=== PATIENT | male | born 1985 | race Caucasian/White ===

== ENCOUNTER 2017-07-01 21:58 | Emergency (ER) | payer BC ==
[2017-07-01] MEDS ORDERED: Ketorolac 30 MG/ML SDV IVPUSH ONE (22:12)
[2017-07-01] MEDS ORDERED: Ondansetron 4 MG/2 ML SDV IVPUSH ONE (22:12)
[2017-07-01] MEDS ORDERED: Sodium Chloride 0.9% 10 ML Syringe FLUSH PRN (22:12)
[2017-07-01] MEDS ORDERED: Iopamidol 755 Mg/ML 100 ML Bottle IV ONE (22:38)
[2017-07-01] MEDS ORDERED: HYDROmorphone 2 MG/ML SDV IVPUSH ONE (23:00)
[2017-07-02] MEDS ORDERED: Sodium Chloride 0.9% 1,000 ML IV SCH (00:15)
--- NOTE | 2017-07-02 00:39 | PCM.CONS ---
H&P History of Present Illness - General Date of Service: 07/02/17 Source of Information: Patient - History of Present Illness Initial Comments - Free Text/Narative: 31 yo wm who developed abd pain this pm. started as a band like pain in the lower abdomen. it is constant. some relief with shifting his legs. Did try hot baths as well as showers with no relief. Did have some emesis as well. He is afebrile. He denies any anorexia. Did have 6 beers this pm as well. lower abdomen and lower back Pain Score (Numeric/FACES): 7 - Related Data Allergies/Adverse Reactions: Allergies Allergy/AdvReac Type Severity Reaction Status Date / Time amoxicillin Allergy Swelling Verified 07/01/17 22:07 Home Medications: Home Meds NK [No Known Home Meds] 07/01/17 [History] Past Medical History - Past Surgical History GI Surgical History: Reports: Hernia, Abdominal, Hernia Repair/Other Social & Family History - Family History Family Medical History: Unobtainable GI: Reports: None - Tobacco Use Smoking Status *Q: Never Smoker - Caffeine Use Caffeine Use: Reports: Soda - Recreational Drug Use Recreational Drug Use: No H&P Review of Systems - Review of Systems: Review Of Systems: See Below General: Denies: Fever, Chills, Decreased Appetite HEENT: Reports: No Symptoms Pulmonary: Reports: No Symptoms Cardiovascular: Reports: No Symptoms Gastrointestinal: Reports: Abdominal Pain Genitourinary: Reports: No Symptoms Musculoskeletal: Reports: Back Pain Skin: Reports: No Symptoms Exam - Exam Exam: See Below - Vital Signs Vital Signs: Last Vital Signs Temp 36.6 C 07/01/17 22:00 Pulse 60 07/01/17 22:00 Resp 16 07/01/17 22:00 BP 145/95 H 07/01/17 22:00 Pulse Ox 99 07/01/17 22:00 Weight: 106.141 kg - Exam General: Alert, Oriented HEENT: PERRLA, Conjunctiva Clear, EOMI, Mucosa Moist & [place] Cardiovascular: Regular Rate, Regular Rhythm GI/Abdominal Exam: Normal Bowel Sounds, Soft, Other (some tympany ). No: Guarding, Rigid, Rebound, Tender Back Exam: Normal Inspection, Full Range of Motion - Patient Data Lab Results Last 24 hrs: Laboratory Results - last 24 hr 07/01/17 07/01/1718 Range/Units 22:32 22:32 22:32 WBC 9.0 (4.5-12.0) X10-3/uL RBC 5.04 (4.30-5.75) x10(6)uL Hgb 15.1 (11.5-15.5) g/dL Hct 46.1 (30.0-51.3) % MCV 91.5 (80-96) fL MCH 30.0 (27.7-33.6) pg MCHC 32.8 (32.2-35.4) g/dL RDW 11.8 (11.5-15.5) % Plt Count 244 (125-369) X10(3)uL MPV 7.6 (7.4-10.4) fL Neut % (Auto) 71.8 (46-82) % Lymph % (Auto) 18.4 (13-37) % [place] % (Auto) 8.7 (4-12) % Eos % (Auto) 1 (1.0-5.0) % Baso % (Auto) 0 (0-2) % Neut # (Auto) 6.4 (1.6-8.3) # Lymph # (Auto) 1.7 (0.6-5.0) # [place] # (Auto) 0.8 (0.0-1.3) # Eos # (Auto) 0.1 (0.0-0.8) # Baso # (Auto) 0.0 (0.0-0.2) # Sodium 139 (135-145) mmol/L Potassium 3.9 (3.5-5.3) mmol/L Chloride 102 (100-110) mmol/L Carbon Dioxide 31 (21-32) mmol/L BUN 12 (7-18) mg/dL Creatinine 1.2 (0.70-1.30) mg/dL Est Cr Clr Drug Dosing 104.65 mL/min Estimated GFR (MDRD) > 60 (>60) BUN/Creatinine Ratio 10.0 (9-20) Glucose 104 (80-116) mg/dL Lactic Acid (0.4-2.2) mmol/L Calcium 9.0 (8.6-10.2) mg/dL Total Bilirubin 1.0 (0.1-1.3) mg/dL AST 24 (5-25) IU/L ALT 36 (12-36) U/L Alkaline Phosphatase 53 L (56-112) IU/L C-Reactive Protein (0.5-0.9) mg/dL Total Protein 7.4 (6.0-8.0) g/dL Albumin 4.3 (3.5-5.2) g/dL Globulin 3.1 g/dL Albumin/Globulin Ratio 1.4 Amylase 92 (25-115) U/L Urine Color (YELLOW) Urine Appearance (CLEAR) Urine pH (5.0-6.5) Ur Specific [place] (1.010-1.025) Urine Protein (NEGATIVE) mg/dL Urine Glucose (UA) (NEGATIVE) mg/dL Urine Ketones (NEGATIVE) mg/dL Urine Occult Blood (NEGATIVE) Urine Nitrite (NEGATIVE) Urine Bilirubin (NEGATIVE) Urine Urobilinogen (NEGATIVE) mg/dL Ur Leukocyte Esterase (NEGATIVE) Urine RBC (0) Urine WBC (0) Ur Epithelial Cells Urine Bacteria (NS) 07/01/17 07/01/17 07/01/17 Range/Units 22:32 22:32 23:10 WBC (4.5-12.0) X10-3/uL RBC (4.30-5.75) x10(6)uL Hgb (11.5-15.5) g/dL Hct (30.0-51.3) % MCV (80-96) fL MCH (27.7-33.6) pg MCHC (32.2-35.4) g/dL RDW (11.5-15.5) % Plt Count (125-369) X10(3)uL MPV (7.4-10.4) fL Neut % (Auto) (46-82) % Lymph % (Auto) (13-37) % [place] % (Auto) (4-12) % Eos % (Auto) (1.0-5.0) % Baso % (Auto) (0-2) % Neut # (Auto) (1.6-8.3) # Lymph # (Auto) (0.6-5.0) # [place] # (Auto) (0.0-1.3) # Eos # (Auto) (0.0-0.8) # Baso # (Auto) (0.0-0.2) # Sodium (135-145) mmol/L Potassium (3.5-5.3) mmol/L Chloride (100-110) mmol/L Carbon Dioxide (21-32) mmol/L BUN (7-18) mg/dL Creatinine (0.70-1.30) mg/dL Est Cr Clr Drug Dosing mL/min Estimated GFR (MDRD) (>60) BUN/Creatinine Ratio (9-20) Glucose (80-116) mg/dL Lactic Acid 0.4 (0.4-2.2) mmol/L Calcium (8.6-10.2) mg/dL Total Bilirubin (0.1-1.3) mg/dL AST (5-25) IU/L ALT (12-36) U/L Alkaline Phosphatase (56-112) IU/L C-Reactive Protein < 0.2 L (0.5-0.9) mg/dL Total Protein (6.0-8.0) g/dL Albumin (3.5-5.2) g/dL Globulin g/dL Albumin/Globulin Ratio Amylase (25-115) U/L Urine Color Yellow (YELLOW) Urine Appearance Clear (CLEAR) Urine pH 7.0 H (5.0-6.5) Ur Specific [place] 1.005 L (1.010-1.025) Urine Protein Negative (NEGATIVE) mg/dL Urine Glucose (UA) Normal (NEGATIVE) mg/dL Urine Ketones Negative (NEGATIVE) mg/dL Urine Occult Blood Negative (NEGATIVE) Urine Nitrite Negative (NEGATIVE) Urine Bilirubin Negative (NEGATIVE) Urine Urobilinogen Normal (NEGATIVE) mg/dL Ur Leukocyte Esterase Negative (NEGATIVE) Urine RBC 0-5 (0) Urine WBC 0-5 (0) Ur Epithelial Cells Occasional Urine Bacteria Rare H (NS) Result Diagrams: 07/01/17 22:32 07/01/17 22:32 Imaging Impressions Last 24 hrs: CT scan report reviewed. no acute inflammatory processes noted. Consult PN Assessment/Plan (1) Abdominal pain SNOMED Code(s): 98037894 Code(s): R10.9 - UNSPECIFIED ABDOMINAL PAIN Current Visit: Yes Qualifiers: Abdominal location: lower abdomen, unspecified Qualified Code(s): R10.30 - Lower abdominal pain, unspecified Assessment:: The patient has a non surgical abd exam as well as lab exam. does have a fair amount of stool in the right side of the abd. would suggest something to move his bowels. Problem List Initiated/Reviewed/Updated: Yes
[2017-07-02] MEDS ORDERED: Sodium Phosphate,Monobasic/Sodium Phosphate,Dibasic Enema 133 ML Bottle RECTAL ONE (00:42)
--- NOTE | 2017-07-03 06:49 | ER ---
DATE SEEN: 07/01/2017 CHIEF COMPLAINT: Abdominal pain. HISTORY OF PRESENT ILLNESS: This is a 31-year-old male with abdominal pain. It started about 1700 hours, mid abdominal area, that is worse with movement and radiates to the back, severe. Tylenol does not help. He also had 1 episode of vomiting, but denies any constipation, fever, or chills. PAST SURGICAL HISTORY: Hernia repair. SOCIAL HISTORY: He is an occupational therapist. Nonsmoker. ALLERGIES: Amoxicillin. PHYSICAL EXAMINATION: GENERAL: He is pale, sick appearing. VITAL SIGNS: Blood pressure 145/95, temperature 97.8, pulse is 60. ABDOMEN: Soft with no tenderness or masses. CHEST: Clear. MENTAL STATUS: Alert. LAB STUDIES: White cell count is normal. Electrolytes are unremarkable. C- reactive protein is normal. UA showed specific gravity of 1.005. CT abdomen and pelvis showed mild enteritis, mild prostate enlargement compared to the age, and mild splenomegaly. IMPRESSION: Unexplained abdominal pain. PLAN: I initially gave him Toradol and Zofran which did not help. I then gave him 1 mg Dilaudid and that seemed to help his symptoms. However, they returned after the medication started to wear off. At this point, I decided to start IV fluids and consult Dr. Loving. /[id number] BJORN/MIRI
== END 2017-07-02 01:05 | disposition home or self-care (01) ==
LOC: FB.ED 21:58
DX: R10.9 Unspecified abdominal pain (principal); Z88.1 Allergy status to other antibiotic agents
CPT/HCPCS: 36415; 74177; 80053; 81001; 82150; 83605; 85025; 86140; 96361; 99285; J1170; J1885; J2405; J7040; J7050; Q9967